=== PATIENT | female | born 2000 | race Caucasian/White ===

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

== ENCOUNTER 2020-05-15 12:23 | Emergency (ER) | payer SELFPAY ==
[~2020-05-15] VITALS: Ht 157.5 cm; Wt 52.3 kg
[2020-05-15 12:29] VITALS: Ht 157.5 cm; Wt 52.3 kg
[2020-05-15 12:53] LABS: BASOPHILS 0.7 % (0-2); EOSINOPHILS 2.1 % (0-7); HEMATOCRIT 37.8 % (36.0-48.0); HEMOGLOBIN 12.2 g/dL (12-16); IMMATURE GRANULOCYTES 0.2 % (0-5); LYMPHOCYTES 29.2 % (15-50); MCH 28.1 pg (26.0-34.0); MCHC 32.3 g/dL (31.0-37.0); MCV 87.1 fL (80.0-100.0); MEAN PLATELET VOLUME 9.4 fL (7.4-10.4); MONOCYTES 10.9 % (2-11); NEUTROPHILS 56.9 % (40-80); PLATELET COUNT 380 10x3/uL (130-400); RBC 4.34 10x6/uL (4.00-5.40); RDW 16.4 % (11.5-14.5); WBC 9.1 10x3/uL (4.8-10.8)
[2020-05-15 13:01] LABS: CALC OSMOLALITY 275 mosm/kg (275-300); CALCIUM 9.2 mg/dL (8.5-10.1); CARBON DIOXIDE 27.5 mmol/L (21.0-32.0); CHLORIDE - SERUM 103 mmol/L (98-107); CREATININE - SERUM 0.8 mg/dL (0.6-1.3); GLUCOSE 93 mg/dL (74-106); POTASSIUM - SERUM 3.8 mmol/L (3.5-5.1); SODIUM 139 mmol/L (136-145); UREA NITROGEN 7 mg/dL (7-18); eGFR NON AFRICAN AMERICAN > 90 mL/min (90-120)
[2020-05-15 13:07] LABS: ALBUMIN 4.2 g/dL (3.4-5.0); ALKALINE PHOSPHATASE 54 U/L (30-120); ALT (SGPT) 33 U/L (10-68); AMYLASE - SERUM 30 U/L (25-115); BILIRUBIN - TOTAL 0.47 mg/dL (0.2-1.3)
[2020-05-15 13:15] LABS: HCG URINE NEGATIVE (NEGATIVE)
[2020-05-15 13:17] LABS: LIPASE 49 U/L (73-393)
[2020-05-15 13:23] LABS: SPECIFIC GRAVITY 1.015 (1.005-1.020)
[2020-05-15 13:24] LABS: BACTERIA MODERATE /hpf (NEGATIVE); BILIRUBIN NEGATIVE (NEGATIVE); EPITHELIAL CELLS 0-5 /hpf (0-5); GLUCOSE NEGATIVE (NEGATIVE); KETONE NEGATIVE (NEGATIVE); NITRITE NEGATIVE (NEGATIVE); RED CELLS - URINE 0-5 /hpf (0-5); UROBILINOGEN NORMAL (NORMAL); WHITE CELLS - URINE 25-50 /hpf (NEGATIVE)
[2020-05-15] MEDS ORDERED: BACTRIM DS TAB1 EAC1 PO (13:51)
[2020-05-15 14:21] VITALS: BP 113/65
== END 2020-05-15 14:22 | disposition home or self-care (01) ==
LOC: D.ER 12:23
PROVIDERS: Family Medicine
DX: N39.0 Urinary tract infection, site not specified (principal); R10.30 Lower abdominal pain, unspecified

== ENCOUNTER 2020-08-21 16:55 | Inpatient (IN) | payer MEDICAID ==
[~2020-08-21] VITALS: Ht 157.5 cm; Wt 45.4 kg
[~2020-08-21 16:55] MED LIST: BACTRIM DS TAB1 EAC1 PO
[2020-08-21 17:39] LABS: BASOPHILS 0.4 % (0-2); EOSINOPHILS 1.8 % (0-7); HEMATOCRIT 39.8 % (36.0-48.0); HEMOGLOBIN 12.9 g/dL (12-16); IMMATURE GRANULOCYTES 0.1 % (0-5); LYMPHOCYTES 47.6 % (15-50); MCH 29.3 pg (26.0-34.0); MCHC 32.4 g/dL (31.0-37.0); MCV 90.2 fL (80.0-100.0); MEAN PLATELET VOLUME 9.4 fL (7.4-10.4); MONOCYTES 10.2 % (2-11); NEUTROPHILS 39.9 % (40-80); PLATELET COUNT 369 10x3/uL (130-400); RBC 4.41 10x6/uL (4.00-5.40); RDW 14.2 % (11.5-14.5); WBC 9.1 10x3/uL (4.8-10.8)
[2020-08-21 17:52] LABS: CALC OSMOLALITY 277 mosm/kg (275-300); CALCIUM 9.4 mg/dL (8.5-10.1); CARBON DIOXIDE 26.7 mmol/L (21.0-32.0); CHLORIDE - SERUM 104 mmol/L (98-107); CREATININE - SERUM 0.9 mg/dL (0.6-1.3); GLUCOSE 109 mg/dL (74-106); SODIUM 138 mmol/L (136-145); UREA NITROGEN 15 mg/dL (7-18); eGFR NON AFRICAN AMERICAN 85 mL/min (90-120)
[2020-08-21 18:01] LABS: ALBUMIN 4.1 g/dL (3.4-5.0); ALKALINE PHOSPHATASE 57 U/L (30-120); ALT (SGPT) 28 U/L (10-68); AMYLASE - SERUM 40 U/L (25-115); BILIRUBIN - TOTAL 0.27 mg/dL (0.2-1.3); LIPASE 73 U/L (73-393); PROTEIN - SERUM 8.3 g/dL (6.4-8.2); TROPONIN-I < 0.017 ng/mL (0.000-0.060)
[2020-08-21 18:09] LABS: BILIRUBIN NEGATIVE (NEGATIVE); KETONE NEGATIVE (NEGATIVE); NITRITE NEGATIVE (NEGATIVE); UROBILINOGEN NORMAL mg/dL (< 2)
[2020-08-21 18:10] LABS: BACTERIA FEW HPF (NONE SEEN); EPITHELIAL CELLS 0-5 /hpf (0-5); WHITE CELLS - URINE 0-5 HPF (0-4)
[2020-08-21 18:46] LABS: HCG URINE NEGATIVE (NEGATIVE)
--- NOTE | 2020-08-21 22:35 | NUR ---
NS 100 ML/H PAUSED FOR MRI. 999 ML REMAINING TO BE INFUSED AFTER MRI IS COMPLETE
--- NOTE | 2020-08-21 22:56 | NUR ---
PT TO MRI
--- NOTE | 2020-08-21 22:56 | NUR ---
COVID SWAB AND URINE TO LAB
--- NOTE | 2020-08-21 23:00 | NUR ---
REPORT GIVEN TO CEZAR PRESTON
--- NOTE | 2020-08-21 23:00 | NUR ---
NS INFUSING AT 100 ML/H WITH 950 ML/H REMAINING AT SHIFT CHANGE.
--- NOTE | 2020-08-22 04:55 | NUR ---
PATIENT RECEIVED FROM ER AND TRANSFERRED TO ROOM 1274. PATIENT CHANGED INTO GOWN AND ORIENTED TO ROOM AND CALL SYSTEM.
[2020-08-22 05:04] VITALS: BP 122/86
--- NOTE | 2020-08-22 05:07 | NUR ---
PATIENT STATES PAIN 4 OUT OF 10. REQUEST FOR PAIN MEDICATION. MORPHINE 2MG ADMINISTERED SLOW IVP. PATIENT DENIES FURTHER NEEDS. BED IN LOWEST POSITION, SIDE RAILS UP X 2, C/L WITHIN REACH.
--- NOTE | 2020-08-22 05:10 | NUR ---
ADMISSION ASSESSMENT AND HISTORY DONE AT THIS TIME.
[2020-08-22 05:11] LABS: BASOPHILS 0.4 % (0-2); EOSINOPHILS 0.4 % (0-7); HEMATOCRIT 35.3 % (36.0-48.0); HEMOGLOBIN 11.4 g/dL (12-16); IMMATURE GRANULOCYTES 0.2 % (0-5); LYMPHOCYTES 24.1 % (15-50); MCH 28.8 pg (26.0-34.0); MCHC 32.3 g/dL (31.0-37.0); MCV 89.1 fL (80.0-100.0); MEAN PLATELET VOLUME 9.6 fL (7.4-10.4); MONOCYTES 9.8 % (2-11); NEUTROPHILS 65.1 % (40-80); PLATELET COUNT 347 10x3/uL (130-400); RBC 3.96 10x6/uL (4.00-5.40); RDW 14.1 % (11.5-14.5)
[2020-08-22 05:14] VITALS: BP 122/86; BMI 18.3
[2020-08-22 05:16] LABS: WBC 13.6 10x3/uL (4.8-10.8)
[2020-08-22 05:36] VITALS: BP 115/77
--- NOTE | 2020-08-22 05:36 | NUR ---
PATIENT LYING IN BED. DENIES PAIN AT THIS TIME. VITAL SIGNS DONE. BED IN LOWEST POSITION, SIDE RAILS UP X 2, C/L AND WATER WITHIN REACH.
[2020-08-22 05:39] LABS: APTT 25.6 SECONDS (22.8-39.4); INR 1.07 (0.85-1.17); PROTIME 13.9 SECONDS (11.6-15.0)
[2020-08-22 06:06] VITALS: BP 110/62
--- NOTE | 2020-08-22 06:06 | NUR ---
PATIENT LYING IN BED WITH EYES CLOSED. EASILY AROUSED. DENIES PAIN. BED IN LOWEST POSITION, SIDE RAILS UP X 2, C/L AND WATER WITHIN REACH.
[2020-08-22 06:10] LABS: ALBUMIN 3.6 g/dL (3.4-5.0); ALKALINE PHOSPHATASE 48 U/L (30-120); ALT (SGPT) 26 U/L (10-68); BILIRUBIN - TOTAL 0.33 mg/dL (0.2-1.3); CALCIUM 8.6 mg/dL (8.5-10.1); CARBON DIOXIDE 22.1 mmol/L (21.0-32.0); CHLORIDE - SERUM 105 mmol/L (98-107); GLUCOSE 86 mg/dL (74-106); PROTEIN - SERUM 7.1 g/dL (6.4-8.2); SODIUM 139 mmol/L (136-145)
[2020-08-22 06:17] LABS: CALC OSMOLALITY 275 mosm/kg (275-300); CREATININE - SERUM 0.6 mg/dL (0.6-1.3); UREA NITROGEN 10 mg/dL (7-18); eGFR NON AFRICAN AMERICAN > 90 mL/min (90-120)
--- NOTE | 2020-08-22 06:53 | NUR ---
PATIENT LYING IN BED WITH EYES CLOSED. RESPIRATIONS AT EASE. EASILY AROUSED. DENIES PAIN OR ANY NEEDS. BED IN LOWEST POSITION, SIDE RAILS UP X 2, C/L WITHIN REACH.
--- NOTE | 2020-08-22 07:30 | NUR ---
PT IS RESTING WITH EYES CLOSED AND RESP EVEN, NO SIGNS OF DISTRESS NOTED, LEFT UNDISTURBED AT THIS TIME. SIDE RAILS UP X 2 WITH CALL LIGHT IN REACH.
[2020-08-22 08:25] LABS: BILIRUBIN NEGATIVE (NEGATIVE); KETONE NEGATIVE (NEGATIVE); NITRITE NEGATIVE (NEGATIVE); UROBILINOGEN NORMAL mg/dL (< 2)
[2020-08-22 08:28] LABS: BACTERIA FEW HPF (NONE SEEN); EPITHELIAL CELLS OCC /hpf (0-5); WHITE CELLS - URINE 0-5 HPF (0-4)
--- NOTE | 2020-08-22 09:15 | NUR ---
ATIVAN ORDER VERIFIED WITH DR EASTMAN. MAY CHANGE TO PRN.
--- NOTE | 2020-08-22 09:30 | NUR ---
RATES PAIN AT 5/10, MORPHINE GIVEN ORDERED, PRIOR TO PAIN MED GIVEN SALINE LOCK WAS FLUSHED EASILY WITH 5ML NS, FLUISH WITH REMAINING 5ML AFTER MORPHINE. ASSESSMENT CHARTED TO FLOWSHEET. DENIES QUESTIONS ABOUT PLAN OF CARE EXPLAINED BY DR EASTMAN. LARGE ICE WATER REQEUSTED. CALL LIGHT IN REACH, SIDE RAILS UP X 2 WITH SIG OTHER AT BEDSIDE.
--- NOTE | 2020-08-22 10:15 | NUR ---
PAIN REASSESSMENT, RATES AT 2/10. DENIES NEEDS AT THIS TIME.
[2020-08-22 10:18] VITALS: Ht 157.5 cm; Wt 45.4 kg
--- NOTE | 2020-08-22 12:15 | NUR ---
DR HORNE CALLS. ORDER RECEIVED TO DC IVP. STATES WILL COME SEE PT AND DISCUSS POC WITH PT.
--- NOTE | 2020-08-22 13:45 | NUR ---
DR EASTMAN ON UNIT AND TO BEDSIDE, GOES OVER PLAN OF CARE FOR SURGERY IN THE AM. CONSENTS SIGNED AND WITNESSED PER MD. PT DENIES QUESTIONS OR CONCERNS AT THIS TIME.
--- NOTE | 2020-08-22 15:45 | NUR ---
(2) CHOCOLATE PUDDINGS TAKEN TO PATIENT PER HER REQUEST. DENIES PAIN AT THIS TIME. CALL LIGHT IN REACH.
--- NOTE | 2020-08-22 18:35 | NUR ---
PT REQUESTS ATIVAN. ATIVAN 0.5 MG GIVEN SIVP AFTER SALINE LOCK FLUSHED WITH 5 ML NS. PT BIRGIT WELL.
--- NOTE | 2020-08-22 18:47 | NUR ---
SANDWICH TRAY WITH CHIPS AND LARGE ICE WATER TAKEN IN, PT AND SIG OTHER AMB IN HALLS AT THIS TIME. RATES PAIN AT 0/10 AT THIS. CALL LIGHT IN REACH WITH SIG OTHER AT BEDSIDE.
--- NOTE | 2020-08-22 19:00 | NUR ---
REPORT GIVEN BY LEXIE Casillas RN AND CEZAR STEVENS
[2020-08-22 20:00] VITALS: BP 125/77
--- NOTE | 2020-08-22 20:00 | NUR ---
INTRODUCED MYSELF TO PT. TOOK HER THE REQUESTED CHICKEN NOODLE SOUP. SHE AND HER BOYFRIEND ARE EATING SANDWICHES. PT HAS NO C/O AT THIS TIME. PT STATES SHE HAS ANXIETY AND HAS BEEN MEDICATED FOR THIS. HEART SOUNDS WITHOUT MURMUR, RATE 100. LUNGS CLEAR, BOWEL SOUNDS HEARD. PT HAS MANY QUESTIONS ABOUT HER SURGERY. I TRIED TO TELL HER EVERYTHING THAT I KNEW THAT WOULD GO ON DURING THE PROCESS OF PRE OP TO THE OR SUITE. SHE VERBALIZED UNDERSTANDING BUT STATES SHE IS STILL ANXIOUS.
--- NOTE | 2020-08-22 20:38 | NUR ---
BACK IN ROOM TO GET PT TEMP. SHE IS STILL SITTING UP WITH NO C/O.
--- NOTE | 2020-08-22 21:05 | NUR ---
PT HAS HAD A HIBICLENS BATH. NO NEW C/O
--- NOTE | 2020-08-22 23:04 | NUR ---
PT C/O PAIN IN ABD REGION. STATES ITS A CRAMPY FEELING. SHE WAS GIVEN [address] MG [address] IV PER DR. PEREZ.
[2020-08-23] VITALS (7 sets, daily range): BP systolic 94–111; BP diastolic 42–68
--- NOTE | 2020-08-23 00:36 | NUR ---
PT RESTING QUIETLY WITHOUT C/O OR NEEDS
--- NOTE | 2020-08-23 02:57 | NUR ---
PT IS RESTING QUIETLY WITH HER EYES CLOSED. NO C/O
--- NOTE | 2020-08-23 03:19 | NUR ---
PT CALLED ASKING FOR PAIN MEDS. SHE IS CRYING. SHE RATES HER PAIN AN 8. IV MORPHINE WAS GIVEN. SHE ASKED FOR AN ICE PACK TO GO ON HER BACK.
--- NOTE | 2020-08-23 05:59 | NUR ---
SURGERY CALLED TO GET PT READY. NS WAS HUNG AND HER ANCEF 1 GM WAS STARTED. SHE RECEIVED ATIVAN IV FOR HER ANXIETY. SHE RECEIVED HER PEPCID AND REGLAN IV. PT STATES THAT HER ABD IS HURTING. SHE HAS TWO KNOTS THAT ARE PROMENENT ON HER ABD THAT ARE HARD TO THE TOUCH. PT HAS VOIDED. HER BOYFRIEND IS WITH HER NOW.
--- NOTE | 2020-08-23 06:42 | NUR ---
PT WAS TAKEN UPSTAIRS FOR SURGERY.
--- NOTE | 2020-08-23 09:00 | NUR ---
RECEIVED BY BED FROM RECOVERY WITH BEDSIDE REPORT PER VALERIE TILLMAN RN. PT IS DROWSY BUT OPENS EYES WHEN HER NAME IS SPOKEN. VSS CHARTED TO FLOWSHEET. IV TO LEFT AC INFUSING NS WHICH IS PLACED ON PUMP AT 125ML/HR. SALINE LOCK TO LEFT WRIST THAT WAS PLACED IN OR PER ANESTHESIA. ABDOMEN SOFT TO TOUCH AND PT DENIES PAIN WITH TOUCH. BURGESS CATH TO BEDSIDE DRAIN WITH 50ML CLEAR URINE NOTED. SHE DENIES NAUSEA AND IS ASKING FOR SOMETHING TO DRINK, SHE IS ALSO WANTING PANCAKES TO EAT BUT UNDERSTANDS THAT NO DIET ORDERS FROM MD AT THIS TIME. SIG OTHER AT BEDSIDE. CALL LIGHT IN REACH.
--- NOTE | 2020-08-23 10:09 | NUR ---
PT DENIES NAUSEA, CONTINUE TO RATE PAIN AT 0/10. C/O BEING "SO SLEEPY" REASSURED HER THAT WAS TO BE EXPECTED AND SLEEP WOULD AID WITH RECOVERY. SIG OTHER REMAINS AT BEDSIDE, CALL LIGHT IN REACH, SIDE RAILS UP X 2.
--- NOTE | 2020-08-23 10:27 | NUR ---
CALLED TO ROOM, PT ASKING WHEN BURGESS WOULD BE REMOVED, STATES SHE FEELS LIKE SHE NEEDS TO GO VOID BUT UNSURE WHAT TO DO, EXPLAINED THAT SHE DID NOT HAVE TO DO ANYTHING BUT RELAX. VERIFIED THAT BURGESS TUBING WAS NOT KINKED ANYWHERE. PT TILTED TO HER RIGHT SIDE, ENRIQUE ANDERSEN ORDERED THRU DIETARY PER PT REQUEST.
--- NOTE | 2020-08-23 11:26 | NUR ---
PT RESTING WITH EYES CLOSED AND RESP EVEN WITH NO SIGNS OF DISTRESS, 60ML NOTED TO BURGESS COLLECTION CANISTER. SIDE RAILS UP X 2 WITH CALL LIGHT IN REACH AND SIG OTHER AT BEDSIDE.
--- NOTE | 2020-08-23 12:29 | NUR ---
DR EASTMAN AT BEDSIDE ORDERS RECEIVED THAT BURGESS MAY BE DISCONTINUED AND ADVANCE DIET TOLERATED. PT IS ALERT AND AWAKE SITTING UP IN BED. EXPLAINS TO PT AND SIG OTHER WHAT WAS DONE THIS AM DURING SURGERY.
--- NOTE | 2020-08-23 13:35 | NUR ---
BURGESS CATH REMOVED WITH TOTAL OUTPUT 120ML CLEAR URINE. PT ABLE TO SIT UP ON SIDE OF BED WITHOUT COMPLAINT, AMB TO BATHROOM AND ABLE TO VOID 100ML, VERY DARK BLEEDING NOTED WHICK DR EASTMAN EXPLAINED TO PT TO EXPECT. UNDERPAD ON BED CHANGED, PT PROVIDED WARM WET WASH CLOTH WITH SHAWN CARE PER SELF, MESH BRIEF AND SHAWN PADS ON AND GOWN CHANGED. PT BACK TO BED WITH NO COMPLAINTS, REGULAR DIET BROUGHT TO ROOM PER DIETARY. SIG OTHER PRESENT AND CALL LIGHT IN REACH.
--- NOTE | 2020-08-23 14:49 | NUR ---
PT AND SIG OTHER AMB IN HALLS, SHE DENIES PAIN AT THIS TIME.
--- NOTE | 2020-08-23 16:55 | NUR ---
PT SITTING UP ON SIDE OF BED EATING IHOP BROUGHT IN BY SIG OTHER. DENIES NEEDS AT THIS TIME.
--- NOTE | 2020-08-23 17:35 | NUR ---
pt asking about removing saline lock from left wrist, states that it is beginning to hurt all the time. No reddness noted, removed with cath intact. Towels placed in bathroom and pt up to shower, verbalizes understanding of emergency call light and to use if she feels dizzy or light headed.
--- NOTE | 2020-08-23 18:37 | NUR ---
DENIES PAIN AT THIS TIME, LARGE CUP OF ICE WATER REQUESTED. NO OTHER NEEDS VOICED.
--- NOTE | 2020-08-23 19:57 | NUR ---
THIS RN TO BEDSIDE FOR SHIFT ASSESSMENT. REC'D PT AA&O X 4 LYING IN BED. PAIN ASSESSED. PT REPORTS ABD ACHING. PAIN MEDICATION OFFERED. PT ACCEPTS. SEE FLOWSHEET FOR SHIFT ASSESSMENT. SEE EMAR FOR MOTRIN ADMIN. PT DENIES NEEDS AT THIS TIME. PM SHIFT POC DISCUSSED W/PT. PT VERBALIZES UNDERSTANDING AND IS AGREEABLE.
--- NOTE | 2020-08-23 21:00 | NUR ---
ROUNDS MADE FOR PAIN REASSESSMENT. PT REPORTS ABD CRAMPING/ACHING IS BETTER. RATES 2/10. NO FURTHER PAIN INTEVENTIONS REQUESTED. DENIES NEEDS.
--- NOTE | 2020-08-23 22:00 | NUR ---
ROUNDS MADE. PT LYING AWAKE IN BED WATCHING TV. PT DENIES PAIN OR NEEDS.
--- NOTE | 2020-08-24 | NUR ---
ROUNDS MADE. PT RESTING IN BED W/EYES CLOSED. RESP EVEN AND UNLABORED. PT LEFT UNDISTURBED AT THIS TIME.
--- NOTE | 2020-08-24 02:00 | NUR ---
ROUNDS MADE. PT LYING IN LOW ALCANTARA'S W/EYES CLOSED. RESP EVEN AND UNLABORED. PT LEFT UNDISTURBED.
--- NOTE | 2020-08-24 04:01 | NUR ---
ROUNDS MADE. PT NOW LYING TO RT SIDE W/EYES CLOSED. RESP EVEN AND UNLABORED. PT LEFT UNDISTURBED.
--- NOTE | 2020-08-24 06:04 | NUR ---
ROUNDS MADE. PT LYING IN SUPINE POSITION W/EYES CLOSED. RESP EVEN AND UNLABORED. PT LEFT UNDISTURBED.
[2020-08-24 08:55] VITALS: BP 120/84
[2020-08-24] MEDS ORDERED: PERCOCET 5-3251 TAB (11:35)
[2020-08-24] MEDS ORDERED: XANAX0.5 MG PO (11:36)
[2020-08-24] MEDS ORDERED: MOTRIN600 MG PO (11:37)
[2020-08-24] MEDS ORDERED: ZOFRAN ODT4 MG/UDTAB PO (11:38)
--- NOTE | 2020-08-24 12:38 | NUR ---
DISCHARGE INSTRUCTIONS PROVIDED VERBALLY AND WRITTEN. PRESCRIPTIONS FOR ZOFRAN, PERCOCET, MOTRIN AND XANAX PROVIDED ALONG WITH INSTRUCTIONS REGARDING USE. PT. DENIES ANY QUESTIONS OR CONCERNS AT THIS TIME.
--- NOTE | 2020-08-24 12:45 | NUR ---
PT. DISCHARGED VIA WC TO FAMILY MEMBER AWAITING IN CAR AT HOSPITAL ENTRANCE.
[2020-08-27 12:12] LABS: CHLAMYDIA TRACHOMATIS, NAA Negative (Negative)
--- NOTE | 2020-08-27 17:37 | OP ---
PATIENT NAME: NANCY RITCHIE MEDICAL RECORD: [id number] LOCATION:[id number]74 ADMISSION DATE:08/21/20 SURGEON: RICK HORNE DO DATE OF OPERATION: 08/23/2020 PREOPERATIVE DIAGNOSIS: Hematometrocolpos and abdominal pain. 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 PRIMARY SURGEON: Rick Horne DO ENVIRONMENTAL SERVICE AIDE SURGEON: Dr. Mae ANESTHESIA: Via LMA. PROCEDURE: Exam under anesthesia, excision of vaginal septum, drainage of hematometra, and vaginoscopy. FINDINGS: Complete vaginal septum. Unable to fully visualize normal cervical structures. A 1200 cc of blood from hematometra expressed. SPECIMENS: None. ESTIMATED BLOOD LOSS: 20 cc. IV FLUIDS: 800 cc. URINE OUTPUT: 50 clear urine via red rubber. Infection prophylaxis 1 gram Ancef. COMPLICATIONS: None. DESCRIPTION OF PROCEDURE: Risks, benefits, and indications were discussed with the patient and significant other pre-op. All questions answered and consents singed prior to procedure. The patient was taken to the operating room where LMA was administered without issue. The patient prepped and draped in normal sterile fashion in dorsal supine position with Thaddeus stirrups. A speculum was placed in vaginal cavity and examined. No cervical structure noted at end of vaginal canal. On pt right, enlarged Bartholin cyst noted at position of 7 oclock. Small incision made with a scalpel. From the incision, a chocolate-colored fluid was spontaneously expressed. Incision opened slightly with Kellys and further fluid expressed; 0-degree hysteroscope utilized to look within incision, and inspection demonstrated vaginal mucosa. At this point, diagnosis of complete vaginal septum made and hysteroscope utilized OPERATIVE REPORT [id number] NANCY RITCHIE to kind of look to posterior aspect of vagina. No large vascular structures noted on inspection of mucosa albright. The location, appearing as a sort of dimple, from which the endometrial fluid was coming out, did not look like a normal cervix Decision made to extend the incision slightly to faciliate drainage. Abdominal pressure applied and drainage of about 1200 cc of dark brown endometrial fluid expressed. After this, a 2-0 Vicryl used to suture edge of incision to allow continued drainage, circumferentially in a locked fashion for hemostasis. One small area at 7 o'clock with some bleeding and Bovie used for hemostasis. Hemostasis was adequate. All instruments were removed and lap, needle, and instrument counts were correct times 2. The patient was awakened and taken to the recovery room in stable condition. TRANSINT:[id number] Voice Confirmation ID: [id number] DOCUMENT ID: [id number] RICK HORNE DO at 1737 CC: [id number] DICTATION DATE: 08/26/20 1515 PLANT CONTROL AIDE: 08/27/20 0000 DIS IN 08/24/20 [id number] [place] [address]
== END 2020-08-24 12:45 | disposition home or self-care (01) | DRG 747 ==
LOC: D.ER 16:55 → D.LD 22:21 → D.EDHOLD 22:21 → D.LD 08-22 04:00
PROVIDERS: Family Medicine; ADMIT Obstetrics & Gynecology; ATTEND Obstetrics & Gynecology
PROC: 0UBG8ZZ Excision of Vagina, Via Natural or Artificial Opening Endoscopic (ICD-10-PCS; 2020-08-23)
PROC: 0U9LXZZ Drainage of Vestibular Gland, External Approach (ICD-10-PCS; 2020-08-23)
PROC: 0U9 Female Reproductive System, Drainage (ICD-10-PCS; principal; 2020-08-23 07:00)
DX: N85.7 Hematometra (principal); B37.3 Candidiasis of vulva and vagina; N75.0 Cyst of Bartholin's gland